=== PATIENT | male | born 1965 | race African-American/Black ===

== ENCOUNTER 2024-09-24 15:52 | Emergency (ER) | payer MEDICAID ==
[~2024-09-24] VITALS: Ht 175.3 cm; Wt 75.0 kg
[2024-09-24 16:00] VITALS: BP 130/75; PULSE 85; RESP 18; TEMP 36.8; O2SAT 99
== END 2024-09-24 20:43 | disposition home or self-care (01) ==
LOC: ER 15:52
DX: R68.89 Other general symptoms and signs (principal); I10 Essential (primary) hypertension; Z99.2 Dependence on renal dialysis; Z59.00 Homelessness unspecified
CPT/HCPCS: 99281